=== PATIENT | female | born 1965 | race Caucasian/White ===

== ENCOUNTER 2019-05-03 07:43 | Outpatient (RCR) | payer BC, SELFPAY ==
--- NOTE | 2019-05-03 08:26 | PTOPEVAL ---
Thank you for referring this patient to [facility]. Please review, sign, date and return this plan of care NICHOLE. I agree with and certify that the following plan of care is medically necessary. Referring Physician Date Admitting Provider: Attending Provider: Harish Aguilar MD Referring Provider: *PT Outpatient Evaluation Start: 05/03/19 07:09 Freq: Status: Active Protocol: Document 05/03/19 07:10 [facility] (Rec: 05/03/19 07:58 [facility] [id number]) Therapy Assessment Status Assessment Status Assessment Status Evaluation Outpatient Past Medical History Past Medical History Past Medical History Status Patient Denies Significant Past Medical History Evaluation Information Problem Diagnosis L knee pain Onset 04/18/19 Additional Evaluation Detail LEFS = Subjective Information patient reports she has been Query Text:As Reported By Patient/ having pain in the L knee Family since february of this year. she reports she was jumping on a box at the gym. she reports she has had an mri of the L knee and reports she has a tear, but does not want surgery at this time. on prednisone for about 1 week. Diagnostic Tests MRI For This Problem Yes: L medial meniscus tear Prior Level of Function Comments Additional Prior Level of Function jumping, exercising, walking Comments without issues. Pain Assessment Timing of Pain Assessment Timing of Pain Assessment Assessment Pain Scale Pain Scale Used Numeric (1 - 10) Self Report Pain Assessment Left Knee(s) Reported Pain Level 2 Pain Frequency Acute Current Pain Intensity 2 Lowest Pain Intensity 2 Greatest Pain Intensity 4 Pain Aggravating Factors Exercise/Activity,Lifting, Weight Bearing/Standing,Other Pain Aggravating Factors Other Pain Aggravating Factors bending down Pain Relief Interventions Used By Medication Patient Pain Score Pain Score 2: Self Report Lower Extremity Range of Motion Knee Range of Motion Right Knee Flexion Range of Motion - Active 135 Knee Extension Range of Motion - Active 0 Query Text: Left Knee Flexion Range of Motion - Active 120 Knee Extension Range of Motion - Active 0 Query Text: Lower Extremity Muscle Strength Testing Hip Strength Right Hip Flexion Strength 4+ Good + Left Hip Flexion Strength
--- NOTE | 2019-05-10 17:39 | PCPTNOTE ---
05/10/19 - patient did not show up for skilled PT this date. she was called with no response as of this 5:15pm. SOFÍA
--- NOTE | 2019-06-26 08:04 | PCPTNOTE ---
06/26/19 - mrs. betancourt has not been to skilled PT in nearly 2 months. as of this date, she will be dc'd from skilled PT services and all progress towards goals will be taken from her most recent evaluation/note. SOFÍA
== END 2019-05-03 09:07 | disposition home or self-care (01) ==
LOC: CHSPT 07:43
PROVIDERS: Visit Provider Internal Medicine
DX: M25.562 Pain in left knee (principal)
CPT/HCPCS: 97161

== ENCOUNTER 2023-05-03 07:09 | Outpatient (CLI) | payer BC, SELFPAY ==
--- NOTE | ~2023-05-03 | MM_ITS ---
EXAMINATION: MM screening adarsh BI w aramis HISTORY: Screening mammogram TECHNIQUE: Craniocaudal and mediolateral oblique 3-D tomosynthesis images were obtained and synthetic 2-D images were generated. CAD analysis was submitted and interpreted. COMPARISON: No prior mammogram is available for comparison at this institution. BREAST PARENCHYMAL COMPOSITION: There are scattered areas of fibroglandular density. FINDINGS: There is no evidence of suspicious mass, calcification, or architectural distortion to sugg est malignancy in either breast. IMPRESSION: 1. No mammographic evidence of malignancy. 2. Recommend routine screening mammography in one year. BI-RADS Category 1: Negative Reviewed, dictated and finalized at location A. [facility]
== END 2023-05-03 07:10 | disposition home or self-care (01) ==
LOC: CHSIMG 07:10
PROVIDERS: PCP Internal Medicine; Visit Provider Internal Medicine
DX: Z12.31 Encounter for screening mammogram for malignant neoplasm of breast (principal)
CPT/HCPCS: 77063; 77067